=== PATIENT | male | born 1990 | race Caucasian/White ===

== ENCOUNTER → 2021-03-16 11:16 | Outpatient (CLI) | payer OTHER, SELFPAY ==
--- NOTE | ~2021-03-16 | US_ITS ---
US renal BI 03/16/2021 11:37 Procedure: Realtime transabdominal ultrasound of the kidneys and bladder. Indication: Family history of renal cell carcinoma Comparison: No prior studies for comparison. Findings: Renal echotexture is normal bilaterally without hydronephrosis, contour deforming mass or r enal calculus. The right kidney measures 10.8 cm and left kidney measures 10.9 cm. Bladder within no rmal limits. Impression: 1: Unremarkable renal ultrasound. No stones, masses or hydronephrosis. Reviewed, dictated and finalized at location A. NTIFIC SYSTEMS ANALYST Impression: 1: Unremarkable renal ultrasound. No stones, masses or hydronephrosis.
== END ==
PROVIDERS: PCP Internal Medicine; Visit Provider Internal Medicine
DX: Z80.51 Family history of malignant neoplasm of kidney (principal)
CPT/HCPCS: 76775

== ENCOUNTER → 2023-03-15 10:47 | Outpatient (CLI) | payer OTHER, SELFPAY ==
--- NOTE | ~2023-03-15 | US_ITS ---
Renal-Bladder ultrasound Clinical History: Family history of renal cell carcinoma Technique: Real-time sonographic imaging of the kidneys and urinary bladder was performed. Findings: The right kidney measures 10.6 cm in length and the left kidney measures 10.8 cm. There is no hydronephrosis or renal calculus identified. Renal cortical echogenicity is within normal limits. No renal mass lesion is identified. The urinary bladder is moderately distended at the time of this exam. No intraluminal echoes are iden tified. No abnormal wall thickening is seen. Impression: Unremarkable ultrasound of the kidneys and urinary bladder. Reviewed, dictated and finalized at location M. B PHYSICIAN Impression: Unremarkable ultrasound of the kidneys and urinary bladder.
== END ==
PROVIDERS: PCP Physician Assistant Medical; Visit Provider Physician Assistant Medical
DX: Z12.79 Encounter for screening for malignant neoplasm of other genitourinary organs (principal); Z80.51 Family history of malignant neoplasm of kidney
CPT/HCPCS: 76775